=== PATIENT | female | born 1965 | race Caucasian/White ===

== ENCOUNTER 2017-11-28 01:17 | Day surgery (SDC) | payer OTHER ==
[~2017-11-28] VITALS: Ht 171.4 cm; Wt 78.5 kg
[~2017-11-28 01:17] MED LIST changes: -IBUP800T37 PO; -LOR5/325 PO
[2017-11-28 06:57] VITALS: BP 127/89
[2017-11-28 07:03] LABS: PLATELET COUNT, AUTOMATED 332 K/uL (150-450)
[2017-11-28] MEDS ORDERED: ONDANSETRON 4 MG/2 ML VIAL ONE (07:33)
[2017-11-28] MEDS ORDERED: PROPOFOL EMUL(*) 10MG/ML 20 ML 20 ML ONE (07:33)
[2017-11-28] MEDS ORDERED: DEXAMETHASONE SOD PHOS 10MG/ML ONE (07:33)
[2017-11-28] MEDS ORDERED: LIDOCAINE MPF 1% 5 ML VIAL ONE (07:33)
[2017-11-28] MEDS ORDERED: fentaNYL CITR 100 MCG/2 ML AMP ONE (07:35)
[2017-11-28] MEDS ORDERED: KETAMINE HCL 200 MG/20 ML MDV ONE (07:38)
[2017-11-28] MEDS ORDERED: HALOPERIDOL LACT 5 MG/ML VIAL IM ONE (07:41)
[2017-11-28] MEDS ORDERED: LIDOCAINE/SOD BICARB 8.4% SYR ID ONE (07:45)
[2017-11-28] MEDS ORDERED: FAMOTIDINE 20 MG TAB PO ONE (07:45)
[2017-11-28] MEDS ORDERED: MIDAZOLAM 2 MG/2 ML VIAL IVP PRN (07:45)
[2017-11-28] MEDS ORDERED: NORMOSOL R SOLN(*) 1000 ML BAG 1,000 ML IV PRN (07:45)
[2017-11-28] MEDS ORDERED: NS 0.9% 3000 ML IRRIGATION BAG IR ONE (08:29)
[2017-11-28] MEDS ORDERED: KETOROLAC 30 MG/ML VIAL ONE (08:43)
[2017-11-28] MEDS ORDERED: LR(*) 1000 ML BAG 1,000 ML IV ONE (08:59)
[2017-11-28] MEDS ORDERED: APAP/HYDROCODONE 325/5 TAB PO PRN (09:00)
--- NOTE | 2017-11-28 09:09 | Post Operative Note ---
Operative Note - SANITARY INSPECTOR Operative Day Date: Nov 28, 2017 Time: 09:00 Physicians Surgeon: Terri Anesthesia: GEN LMA Diagnosis Pre-Op Diagnosis: Postmenopausal Bleeding Endometrial polyp Post-Op Diagnosis: Same Procedure Findings: endometrial polyp Procedure(s): H-scope diagnostic H-scope polypectomy Dilation and curretage Novasure ablation Specimen Removed:(Maybe N/A): polyp Complications: none #[id number] Fluids Fluids: 800 ml Estimated Blood Loss: minimal Dictated Date OP Note Dictated: Nov 28, 2017 Time OP Note Dictated: 09:02 Copies to: QIAN LUZ MD, TRAVIS MD Nov 28, 2017 09:09
--- NOTE | 2017-11-28 09:13 | Short(Outpt) Discharge Summary ---
Discharge Summary Reason for Hosp/Final Diag: (1) Postmenopausal bleeding Hospital Course & Plan: Dilation and curettage, NovaSure ablation (2) Endometrial polyp Hospital Course & Plan: Myosure polypectomy Departure Discharge to: Home, Self Care Discharge Instructions Home Meds Reported Medications [Premarin Vg Cream] No Conflict Check, 0.5 GM [facility] QHS 11/13/17 Estradiol (VIVELLE-DOT 0.05 MG) 1 Each Patch.tdsw, 1 EACH TD 2XW, PATCH.BWK 11/13/17 Cholecalciferol (Vitamin D3) (VITAMIN D) 2,000 Unit Tablet, 2000 UNIT PO DAILY 11/13/17 Progesterone,Micronized (PROMETRIUM) 100 Mg Capsule, 100 MG PO DAILY, CAPSULE 11/13/17 Follow up Referrals: TIER OVER - In Two Weeks @ [facility] with Carl Murray Md Diet: Regular Activity: As Tolerated Special Instructions: Copies to: CARL MURRAY MD, TRAVIS MD Nov 28, 2017 09:13
[2017-11-28] MEDS ORDERED: IBUP800T37 PO (09:17)
[2017-11-28] MEDS ORDERED: LOR5/325 PO (09:17)
--- NOTE | 2017-11-28 14:29 | OPERATIVE REPORT 1 ---
EVENT DATE: November 28, 2017 SURGEON: Carl Murray MD ANESTHESIOLOGIST: Juliocesar Torres MD ANESTHESIA: LMA anesthesia. PREOPERATIVE DIAGNOSES 1. Postmenopausal bleeding. 2. Endometrial polyp. POSTOPERATIVE DIAGNOSES 1. Postmenopausal bleeding. 2. Endometrial polyp. PROCEDURES PERFORMED 1. Diagnostic hysteroscopy. 2. Hysteroscopic polypectomy. 3. Dilatation and curettage. 4. Hysteroscopic NovaSure endometrial ablation. FLUIDS Crystalloid 800 mL IV. ESTIMATED BLOOD LOSS Minimal. FINDINGS The patient had a swollen and irritated lesion on the right upper labia majora just over the clitoral mcarthur that she had asked me to look at. Viral culture was obtained, although it appeared to be more consistent with an occluded sebaceous gland or hair follicle. There was some redness and induration to the tissue surrounding that area. The uterus was sounded to a depth of 8 cm. The cervix was measured with the MyoSure scope and was 3.5 cm, making a cavity length of 4.5 cm. Cavity width as measured with the NovaSure device was 3.1, power setting 77 whitley, and total ablative time 67 seconds. A 10 mL MyoSure deficit. There was an endometrial polyp noted on the right cavity sidewall protruding into the central portion of the cavity. Normal-appearing tubal ostia bilaterally. PROCEDURE IN DETAIL The patient was brought to the operating room with a working IV, placed in the dorsal supine position on the operating table. She was prepped and draped in the usual sterile fashion. After general LMA anesthesia was obtained, a weighted speculum was placed in the vagina. The cervix was grasped on the anterior lip with a single-toothed tenaculum. It was carefully sounded to a depth of 8 cm, retroverted. The cervix was then carefully dilated to a size 7 Hegar dilator. The MyoSure scope was assembled, passed through the cervix into the uterus, and cavity was inspected. The above findings were noted. Measurements were taken. The scope was removed. The cervix was dilated further to a size 8 Hegar dilator. MyoSure was assembled. Again, the MyoSure scope was passed through the cervix into the uterus. Using the MyoSure, the endometrial polyp along the right side of the endometrial cavity was dissected out until a uniform cavity appearance was obtained. The MyoSure was removed. Curettage was performed, and specimen was collected and sent to Pathology. The NovaSure device was then assembled. It was locked into a length of 4.5 cm. It was passed through the cervix into the uterus. The array was extended and locked in place, rocked about, and seated into the corners of the uterine cavity with a width measured of 3.1 cm. These measurements were programmed into the NovaSure controller. The device plunger was approximated against the cervix, and a cavity assessment was performed with the NovaSure device and passed. Therefore, the device was enabled and activated with a total ablative time of 67 seconds before automatic shutoff. The device was then removed. Using the MyoSure scope, the cavity was again inspected and found to have a uniform burn throughout the endometrial cavity with no sparing noted. Both cornual locations had been treated. Therefore, the procedure was terminated. All instruments were then removed from the uterus and cervix. No visible complications. The patient tolerated the procedure well. Sponge, lap, needle, and instrument counts were all correct times three. She was taken to recovery in stable condition. DELANEY
[2017-11-28] MEDS ORDERED: IBUPROFEN 800 MG TAB PO SCH (15:00)
== END 2017-11-28 10:05 | disposition home or self-care (01) ==
LOC: OR 01:17
PROVIDERS: ATTEND Obstetrics & Gynecology
DX: N95.0 Postmenopausal bleeding (principal); N84.0 Polyp of corpus uteri
CPT/HCPCS: 36415; 58558; 84703; 85025; 87252; 88305; J1100; J1630; J1885; J2001; J2250; J2405; J2704; J3010; J3490

== ENCOUNTER → 2017-11-28 | Outpatient (REF) | payer OTHER ==
[~2017-11-28] MED LIST: CHOL200022 PO; CONJUGATED ESTROGENS VA; ESTR1PAT66 TD; HYDR-4309 PO; IBUP800T37 PO; LOR5/325 PO; PROG100C16 PO
== END ==
LOC: ZZSENDIN 07:04
PROVIDERS: ATTEND Internal Medicine Endocrinology, Diabetes & Metabolism
DX: R94.6 Abnormal results of thyroid function studies (principal)
CPT/HCPCS: 83519; 84439; 84443